=== PATIENT | female | born 1955 | race Caucasian/White ===

== ENCOUNTER 2023-11-04 14:32 | Outpatient (CLI) | payer OTHER | END 2023-11-04 23:59 | disposition critical access hospital (66) | LOC: EMS 14:32 | DX: R51.9 Headache, unspecified (principal); M54.2 Cervicalgia; R11.0 Nausea; W18.39XA Other fall on same level, initial encounter; Y93.H2 Activity, gardening and landscaping; Y92.007 Garden or yard of unspecified non-institutional (private) residence as the place of occurrence of the external cause | CPT/HCPCS: A0425; A0427 ==

== ENCOUNTER 2023-11-04 15:11 | Emergency (ER) | payer MEDICARE, OTHER ==
--- NOTE | 2023-11-04 15:19 | ED Physician Documentation ---
PD HPI Fall - Stated complaint Stated Complaint: GLF - History obtained from History obtained from: Patient, EMS - Additional information Additional information: She has a history of type 2 diabetes and was gardening today. She was up and a bout a 2 foot ledge and fell backwards hitting the back of her head. There was no loss of consciousness but complains of severe headache, some neck pain and some right hip pain but she actually points to the posterior pelvis as the area of pain. Probable she was nauseous prehospital and received Zofran en route. PD PAST MEDICAL HISTORY - Present Medications Home Medications: Ambulatory Orders Medication Instructions Recorded Confirmed HYDROcod/ACETAM 5/325 [[place] 5/325] 1 - 2 tab PO Q6H PRN #15 tablet 11/04/23 Insulin NPH Hum/Reg Insulin Hm 11/04/23 11/04/23 [Humulin 70/30 Kwikpen] Insulin NPH Hum/Reg Insulin Hm 10 unit SQ BID #3 ea 11/04/23 [Novolin 70-30 100 Unit/ml Vial] Montelukast [Singulair] 1 tab PO DAILY 11/04/23 11/04/23 Ondansetron HCl 4 mg PO PRN PRN 11/04/23 11/04/23 Ondansetron Odt [Zofran] 4 mg TL Q6H PRN #10 tablet 11/04/23 Pantoprazole Sodium [Protonix] 1 tab PO DAILY 11/04/23 11/04/23 Propranolol ER [Inderal LA] 1 cap PO DAILY 11/04/23 11/04/23 Rosuvastatin Calcium 1 tab PO DAILY 11/04/23 11/04/23 Ubrogepant [Ubrelvy] 1 tab PO DAILY 11/04/23 11/04/23 buPROPion HCL [Wellbutrin Xl] 1 tab PO DAILY 11/04/23 11/04/23 lisinopriL [Zestril] 1 tab PO DAILY 11/04/23 11/04/23 metFORMIN [Glucophage] 1 tab PO DAILY 11/04/23 11/04/23 - Allergies Allergies/Adverse Reactions: Allergies Allergy/AdvReac Type Severity Reaction Status Date / Time No Known Drug Allergies Allergy Verified 11/04/23 15:26 PD ED PE NORMAL - Vitals Vital signs reviewed: Yes - General General: Alert and oriented X 3, No acute distress - HEENT HEENT: PERRL, EOMI - Neck Neck: Other (Mild tenderness to the upper C-spine, maintain in a collar pending imaging) - Cardiac Cardiac: RRR, No murmur - Respiratory Respiratory: No respiratory distress, Clear bilaterally - Abdomen Abdomen: Normal bowel sounds, Soft, Non tender - Back Back: No CVA TTP, No spinal TTP - Derm Derm: Normal color, Warm and dry - Extremities Extremities: Other (. Mild tenderness to the posterolateral right hip area but painless internal and external rotation of the right hip.) - Neuro Neuro: Alert and oriented X 3 Eye Opening: Spontaneous Motor: Obeys Commands Verbal: Oriented GCS Score: 15 Results - Vitals Vitals: Vital Signs - 24 hr 11/04/23 11/04/23 15:20 16:38 Temperature 36.6 C Heart Rate 103 H 109 H Respiratory 20 16 Rate Blood Pressure 134/118 H 154/89 H O2 Saturation 100 97 Oxygen O2 Source Room air - Rads (name of study) CT of the head, cervical spine, and pelvis without acute fracture or trauma. That arthritic change in the neck. Relevant Findings:: Final report received, EMP independent interpretation of test PD Medical Decision Making - ED course ED course: She was feeling better after some IV Dilaudid and Zofran. She had some questions, she fell 3 weeks ago and was having some persistent postconcussive syndromes. PCP follow-up was advised. She also needed a refill of her insulin. Departure - Departure Disposition: 01 Home, Self Care Clinical Impression: Post concussion syndrome, Injury of head and neck, Pelvic contusion Condition: Good Record reviewed to determine appropriate education?: Yes Instructions: ED Head Injury Closed Prescriptions: HYDROcod/ACETAM 5/325 [[place] 5/325] 1 - 2 tab PO Q6H PRN #15 tablet PRN Reason: Pain Insulin NPH Hum/Reg Insulin Hm [Novolin 70-30 100 Unit/ml Vial] 10 unit SQ BID #3 ea Ondansetron Odt [Zofran] 4 mg TL Q6H PRN #10 tablet PRN Reason: Nausea / Vomiting Comments: I sent [facility] in [place]. You are having persistent postconcussive symptoms from the prior head injury a few weeks ago, today you do not seem concussed to me, but I would like you to follow-up with your primary care physician next week and discuss. Return for new or worsening symptoms. I am prescribing a short course of narcotic pain medication for you. These are potentially dangerous and addictive medications that should be used carefully. These medications may constipate you. Take an kihp-nbs-xeakszz stool softener (docusate) twice daily with plenty of water while taking these medications. If you go 24 hours without a bowel movement, take mugr-zgs-wylooeo miralax, per package instructions. Do not drink or drive while taking these medications. If you received narcotic or sedating medications while in the emergency department, do not drive for 24 hours. Store this medication in a safe, secure place and out of reach of children. It is a violation of federal law to give or sell this medication to another person or to use in a manner other than prescribed. The ED will not refill narcotic prescriptions, including prescriptions lost or stolen. To dispose of unwanted medications: 1. [facility] provides a drop box for medication in pill for m only (no liquids) 8:00 am to 4:30 p.m. Saturday-Saturday in the lobby of the [facility], [address] [place] [address]. Empty pills into ziplock bag before disposal. Call [phone] for information. 2.[employer] is a free service available to all [facility] residents. Go to https://imo.im.org/locations/[place]/ Note that many narcotic pain relievers also contain Tylenol/acetaminophen. Please ensure that your total dose of acetaminophen from all sources does not exceed 3 g (3000 mg) per day.
--- NOTE | 2023-11-04 15:55 | CT Report ---
PROCEDURE: Head WO INDICATIONS: head/neck inj TECHNIQUE: Noncontrast 4.5 mm thick angled axial sections acquired from the foramen magnum to the vertex. For r adiation dose reduction, the following was used: automated exposure control, adjustment of mA and/or kV according to patient size. COMPARISON: None. FINDINGS: Image quality: Excellent. CSF spaces: Basal cisterns are patent. No extra-axial fluid collections. Ventricles are normal in size and shape. Brain: No midline shift. No intracranial masses or hemorrhage. Miranda-white matter interface is norm al. Skull and face: Calvarium and visualized facial bones are intact, without suspicious lesions. Sinuses: Visualized sinuses and mastoids are clear. IMPRESSION: No acute intracranial pathology. Reviewed by: Abdirizak Payan MD on 11/04/2023 3:53 PM PDT Approved by: Abdirizak Payan MD on 11/04/2023 3:53 PM PDT Station ID: [id number]
--- NOTE | 2023-11-04 15:57 | CT Report ---
PROCEDURE: Cervical Spine WO INDICATIONS: head/neck inj TECHNIQUE: Noncontrast 3 mm thick sections acquired from the skull base to the T4 level. Sagittal and coronal r eformats were then constructed. For radiation dose reduction, the following was used: automated exp osure control, adjustment of mA and/or kV according to patient size. COMPARISON: None. FINDINGS: Image quality: Excellent. Bones: No acute fractures or dislocations. Question old nonunited tip of dens fracture. Severe cervi juanita spondylosis centered at C4-C5 through C6-C7 with severe disc height loss and uncovertebral joint osteophytes with bilateral bony foraminal narrowing. There is also multilevel facet arthropathy, most notably on the left at C3-C4 and on the right at C2-C3. There is a chronic peripherally calcified di sc protrusion at C6-C7 resulting in mild canal stenosis. Visualized superior ribs are intact. Soft tissues: Prevertebral soft tissues are normal in thickness. No paravertebral hematomas. No ap ical pneumothoraces. IMPRESSION: 1. No acute cervical fracture or dislocation. 2. Severe cervical spondylitic change. 3. Question remote nonunited fracture of the tip of the dens, an incidental finding. Reviewed by: Abdirizak Payan MD on 11/04/2023 3:56 PM PDT Approved by: Abdirizak Payan MD on 11/04/2023 3:56 PM PDT Station ID: [id number]
[2023-11-04] MEDS: ONDANSETRON 4 MG/2 ML VIAL IVP STA (15:58)
[2023-11-04] MEDS: HYDROmorphone 1 MG/ML CARPUJECT IVP STA (15:59)
--- NOTE | 2023-11-04 15:59 | CT Report ---
PROCEDURE: Pelvis WO INDICATIONS: r pelvic pain, fall TECHNIQUE: Noncontrast 3 mm axial sections acquired through the bony pelvis, with coronal and sagittal reformatt ing. For radiation dose reduction, the following was used: automated exposure control, adjustment of mA and/or kV according to patient size. COMPARISON: None. FINDINGS: Image quality: Excellent. Bones: No fracture or dislocation noted involving the pelvis and hips. Soft tissues: Remote hysterectomy. Small fat-containing right inguinal hernia. Otherwise unremarkabl e. IMPRESSION: No acute fracture or dislocation involving the pelvis and hips. Reviewed by: Abdirizak Payan MD on 11/04/2023 3:58 PM PDT Approved by: Abdirizak Payan MD on 11/04/2023 3:58 PM PDT Station ID: [id number]
[2023-11-04 16:40] VITALS: BP 154/89; O2SAT 97
[2023-11-04] MEDS: METOCLOPRAMIDE 10 MG TABLET PO STA (16:57)
[2023-11-04] MEDS: METOCLOPRAMIDE 10 MG/2 ML VIAL IVP STA (16:59)
== END 2023-11-04 17:23 | disposition home or self-care (01) ==
LOC: ED 15:11
DX: S09.90XA Unspecified injury of head, initial encounter (principal); S19.9XXA Unspecified injury of neck, initial encounter; S37.92XA Contusion of unspecified urinary and pelvic organ, initial encounter; F07.81 Postconcussional syndrome; W19.XXXA Unspecified fall, initial encounter; Y93.H2 Activity, gardening and landscaping; E11.9 Type 2 diabetes mellitus without complications; Z79.899 Other long term (current) drug therapy; Z79.4 Long term (current) use of insulin; Z79.84 Long term (current) use of oral hypoglycemic drugs
CPT/HCPCS: 70450; 72125; 72192; 96374; 96375; 99284; A9270; J1170